=== PATIENT | female | born 1970 | race Caucasian/White ===

== ENCOUNTER 2016-11-07 22:40 | Inpatient (IN) | payer BC ==
[~2016-11-07] VITALS: Ht 165.1 cm; Wt 59.4 kg
[2016-11-07] MEDS ORDERED: SUMA50TA PO (22:49)
[2016-11-07] MEDS ORDERED: ONDANSETRON 4 MG/2 ML VIAL IV ONE (23:00)
[2016-11-07] MEDS ORDERED: IV NORMAL SALINE 1000 ML BAG IV ONE (23:00)
[2016-11-07] MEDS ORDERED: HYDROMORPHONE 1 MG/1 ML DISP.SYRIN IV ONE (23:00)
[2016-11-07] MEDS ORDERED: ONDANSETRON 4 MG/2 ML VIAL ONE (23:12)
[2016-11-07] MEDS ORDERED: HYDROMORPHONE 1 MG/1 ML DISP.SYRIN ONE ×2 (23:12→23:59)
[2016-11-07 23:29] LABS: ALBUMIN 4.6 g/dL (3.4-5.0); BILIRUBIN,DIRECT 0.1 mg/dL (0.0-0.2); BILIRUBIN,TOTAL 0.7 mg/dL (0.2-1.0); CALCIUM 9.6 mg/dL (8.5-10.1); CREATININE 0.9 mg/dL (0.6-1.3); POTASSIUM 3.8 mmol/L (3.5-5.1); TOTAL PROTEIN, SERUM 7.8 g/dL (6.4-8.2)
[2016-11-07 23:32] LABS: BASOPHILS % (AUTO) 0.1 % (0.0-2.0); HEMATOCRIT 42.3 % (37.0-47.0); HEMOGLOBIN 14.4 g/dL (12.0-16.0); LYMPHOCYTES # (AUTO) 0.6 K/uL (0.8-4.8); LYMPHOCYTES % (AUTO) 4.7 % (20.5-51.5); MEAN CORPUSCULAR HEMOGLOBIN 31.2 uug (27.0-31.0); MEAN CORPUSCULAR HGB CONC 34 g/dL (32.0-37.0); MEAN CORPUSCULAR VOLUME 91.7 fL (81.0-99.0); MONOCYTES % (AUTO) 8.7 % (0.0-11.0); NEUTROPHILS # (AUTO) 10.4 K/uL (1.8-8.9); NEUTROPHILS % (AUTO) 86.5 % (38.5-71.5); PLATELET COUNT (AUTO) 185 K/uL (150-450); RED BLOOD CELL COUNT(AUTO) 4.61 MIL/uL (4.20-5.40); RED CELL DISTRIBUTION WIDTH 11.5 % (11.5-14.5)
[2016-11-08] MEDS ORDERED: HYDROMORPHONE 1 MG/1 ML DISP.SYRIN IV ONE
[2016-11-08] MEDS ORDERED: ONDANSETRON 4 MG/2 ML VIAL ONE
[2016-11-08] MEDS ORDERED: ONDANSETRON IV *ER 4 MG/2 ML VIAL IV ONE
--- NOTE | 2016-11-08 01:16 | NUR ---
Patient is in bed, comfortable , no distress noted at this time. awaiting CT results. No nausea/vomiting at this time.
--- NOTE | 2016-11-08 01:39 | NUR ---
[facility] TO MD. CONSULT.
[2016-11-08] MEDS ORDERED: METRONIDAZOLE 500 MG/NS 100 ML PIGGYBACK IV ONE (01:45)
[2016-11-08] MEDS ORDERED: CEFTRIAXONE 1 G in IV DEXTROSE 5% 50 ML IV ONE (01:45)
[2016-11-08] MEDS ORDERED: IV NS 1000 ML 1,000 ML IV PRN (01:46)
[2016-11-08] MEDS ORDERED: CEFTRIAXONE 1 G VIAL ONE (01:56)
[2016-11-08] MEDS ORDERED: METRONIDAZOLE 500 MG/NS 100ML 100 ML IV ONE (01:57)
[2016-11-08] MEDS ORDERED: MAGNESIUM HYDROXIDE 30 ML LIQUID UDC PO PRN (02:00)
[2016-11-08] MEDS ORDERED: TEMAZEPAM 7.5 MG CAPSULE PO PRN (02:00)
[2016-11-08] MEDS ORDERED: Z GUARD REMEDY PASTE 57 GM TUBE TOP PRN (02:00)
[2016-11-08] MEDS ORDERED: ACETAMINOPHEN 325 MG TABLET PO PRN (02:00)
[2016-11-08] MEDS ORDERED: MORPHINE SULFATE 2 MG/1 ML DISP.SYRIN IV PRN ×2 (02:00→10:30)
[2016-11-08] MEDS ORDERED: ONDANSETRON 4 MG/2 ML VIAL IV PRN (02:00)
--- NOTE | 2016-11-08 02:12 | NUR ---
Pt. admitted to telemetry , under care of Dr. Maldonado. Dx: Appendicitis Belongs List completed
--- NOTE | 2016-11-08 02:15 | NUR ---
Patient arrived from ED awake, alert & oriented. Received report from YELITZA Wahl. Patient was admitted for appendicitis. Patient is able to verbalize needs. Patient reports no distress. Respirations are unlabored and V/S are WNL. PERRLA. Skin is Warn ,dry pink and intact. Patient ambulates with steady gate. Patient has pain on right side of her abdomen 10/10. Patient is NPO, and scheduled for an appendectomy this morning. Patient has a 22g & a 20g in her right AC. Patient is resting in bed comfortably with bed flat and in lowest position, with 2/4 siderails up for safety. Call light within reach. will continue to monitor.
[2016-11-08] MEDS ORDERED: PIPERACILLIN/TAZOBACTAM/D5W 50 ML IV ONE (04:12)
[2016-11-08] MEDS: PIPERACILLIN/TAZOBACTAM/D5W 3.375 G in PREMIXED 1 EACH IV SCH ×3 (05:07→22:10)
[2016-11-08 05:12] LABS: *BILIRUBIN,URIN NEGATIVE (NEGATIVE); *BLOOD, URINE 2+ (NEGATIVE); *CLARITY,URINE CLEAR (CLEAR); *COLOR,URINE YELLOW (YELLOW); *KETONES,URINE 4+ (NEGATIVE); *PROTEIN,URINE NEGATIVE (NEGATIVE); *UROBILINOGEN,URINE 0.2 E.U./dl (NORMAL); LEUKOCYTE ESTERASE ,URINE NEGATIVE (NEGATIVE); NITRITE, URINE NEGATIVE (NEGATIVE); PH,URINE 5.5 (5.0-8.0); UGLUCOSE NEGATIVE (NEGATIVE)
[2016-11-08 05:20] LABS: BACTERIA,URINE FEW /HPF (NONE SEEN); SQUAMOUS EPITHELIAL CELL,UR MODERATE /HPF (NONE SEEN); WBC,URINE 0-3 /HPF (0-3)
[2016-11-08] MEDS ORDERED: LIDOCAINE HCL 1% 20 ML VIAL ONE (05:44)
[2016-11-08] MEDS ORDERED: BUPIVACAINE/EPI PF 0.25% 30 ML VIAL ONE (05:44)
[2016-11-08 07:08] LABS: BASOPHILS % (AUTO) 0.3 % (0.0-2.0); HEMATOCRIT 38.5 % (37.0-47.0); LYMPHOCYTES # (AUTO) 0.7 K/uL (0.8-4.8); MEAN CORPUSCULAR HEMOGLOBIN 30.8 uug (27.0-31.0); MEAN CORPUSCULAR HGB CONC 34 g/dL (32.0-37.0); MONOCYTES % (AUTO) 8.8 % (0.0-11.0); NEUTROPHILS # (AUTO) 9.2 K/uL (1.8-8.9); NEUTROPHILS % (AUTO) 84.9 % (38.5-71.5); PLATELET COUNT (AUTO) 185 K/uL (150-450); RED BLOOD CELL COUNT(AUTO) 4.23 MIL/uL (4.20-5.40); RED CELL DISTRIBUTION WIDTH 11.4 % (11.5-14.5); WHITE BLOOD COUNT (AUTO) 10.9 K/uL (4.0-11.2)
[2016-11-08 07:25] LABS: ALBUMIN 3.9 g/dL (3.4-5.0); BILIRUBIN,TOTAL 0.7 mg/dL (0.2-1.0); CALCIUM 8.5 mg/dL (8.5-10.1); CREATININE 0.8 mg/dL (0.6-1.3); MAGNESIUM 1.7 mg/dL (1.8-2.4); PHOSPHOROUS 2.8 mg/dL (2.5-4.9); POTASSIUM 3.7 mmol/L (3.5-5.1)
[2016-11-08] MEDS: PANTOPRAZOLE SODIUM 40 MG VIAL IV SCH (07:25)
[2016-11-08] MEDS ORDERED: DESFLURANE ANESTHESIA GAS 240 ML BOTTLE IH ONE (07:43)
[2016-11-08] MEDS ORDERED: PROPOFOL 200 MG/20 ML BOTTLE IV ONE (07:43)
[2016-11-08] MEDS ORDERED: ESMOLOL HCL 100 MG/10 ML VIAL IV ONE (07:44)
[2016-11-08] MEDS ORDERED: NEOSTIGMINE METHYLSULFATE 10 MG/10 ML VIAL IV ONE (07:44)
[2016-11-08] MEDS ORDERED: GLYCOPYRROLATE 0.2 MG/ML VIAL MC ONE (07:44)
[2016-11-08] MEDS ORDERED: KETOROLAC TROMETHAMINE 30 MG INJ IM ONE (07:45)
[2016-11-08] MEDS ORDERED: DEXAMETHASONE SOD PHOSPHATE 4 MG INJ IV ONE (07:45)
[2016-11-08] MEDS ORDERED: ONDANSETRON 4 MG/2 ML VIAL IV ONE (07:46)
[2016-11-08] MEDS ORDERED: IV NORMAL SALINE 1000 ML BAG IV ONE (07:46)
--- NOTE | 2016-11-08 09:11 | NUR ---
NURSING NOTE A/O IN NO ACUTE DISTRESS. RETURNED FORM SX 0900. ABD SOFT SKIN INTACT TWO LAP SCARS WITH DERMABOND. INTACT CLEAN NO BLEEDING OR SWELLING NOTED. NO C/O PAIN 08/20. NO REQUEST FOR PAIN MED AT THIS TIME. UP OOB TO AMBUATE TO BR. HOWIE WELL
[2016-11-08 09:15] VITALS: BP 106/70
[2016-11-08] MEDS: HYDROCODONE/APAP 5-325MG TABLET PO PRN ×2 (10:17→14:54)
[2016-11-08] MEDS ORDERED: IV LACTATED RINGERS SOLUTION 1,000 ML IV PRN (11:15)
[2016-11-08 11:30] VITALS: BP 107/70
[2016-11-08 16:11] VITALS: BP 100/68
[2016-11-08] MEDS: MAGNESIUM SULFATE/D5W 100 ML IV SCH ×3 (17:28→20:23)
[2016-11-08] MEDS: MORPHINE SULFATE 4 MG/1 ML DISP.SYRIN IV PRN ×2 (17:47→21:05)
--- NOTE | 2016-11-08 19:30 | NUR ---
nsg: pt received awake, alert, in bed. denies discomfort. lungs sound clear to auscultate. tele, SR. bowel sounds hypoactive. has 2 abd incisions. pt is encouraged to ambulate. per pt, tolerated po well, denies n/v. refused dvt pumps. cont to monitor.
--- NOTE | 2016-11-08 20:10 | NUR ---
nsg: pt ambulating around the unit. denies discomfort.
--- NOTE | 2016-11-08 20:23 | NUR ---
NSG: spoke with am RN, only administered 1 gram of mag. order is total of 2 grams mag iv. administered 2nd dose of mag.
[2016-11-08 21:48] VITALS: BP 101/65
[2016-11-08 23:13] VITALS: BP 100/67
[2016-11-09] MEDS: MORPHINE SULFATE 4 MG/1 ML DISP.SYRIN IV PRN (01:56)
[2016-11-09] MEDS: PANTOPRAZOLE SODIUM 40 MG VIAL IV SCH (05:36)
[2016-11-09] MEDS: HYDROCODONE/APAP 5-325MG TABLET PO PRN ×2 (05:37→10:12)
[2016-11-09] MEDS: PIPERACILLIN/TAZOBACTAM/D5W 3.375 G in PREMIXED 1 EACH IV SCH (05:37)
[2016-11-09 05:45] VITALS: BP 97/61
--- NOTE | 2016-11-09 06:17 | NUR ---
nsg: pt awake, alert, ambulated 2 laps around the unit. passed gas x 1, but bowel sounds still hypoactive. denies n/v. c/o abd soreness, pain meds given. tele, SR. cont to monitor.
--- NOTE | 2016-11-09 07:05 | NUR ---
PATIENT RECEIVED IN ROOM RESTING ALERT AWAKE IN NO ACUTE DISTRESS. DENIED PAIN. SR ON TELEMETRY. RESPIRATIONS EVEN AND UNLABORED. IVF RUNNING. IV SITE INTACT AND PATENT. CALL LIGHT AT REACH.
[2016-11-09 07:24] LABS: BASOPHILS % (AUTO) 0.2 % (0.0-2.0); EOSINOPHILS % (AUTO) 0.6 % (0.0-7.0); HEMOGLOBIN 11.4 g/dL (12.0-16.0); LYMPHOCYTES % (AUTO) 16.6 % (20.5-51.5); MEAN CORPUSCULAR HEMOGLOBIN 31.8 uug (27.0-31.0); MEAN CORPUSCULAR HGB CONC 34 g/dL (32.0-37.0); MEAN CORPUSCULAR VOLUME 93.1 fL (81.0-99.0); MONOCYTES # (AUTO) 0.5 K/uL (0.1-1.30); MONOCYTES % (AUTO) 9.2 % (0.0-11.0); NEUTROPHILS # (AUTO) 4.3 K/uL (1.8-8.9); NEUTROPHILS % (AUTO) 73.4 % (38.5-71.5); PLATELET COUNT (AUTO) 153 K/uL (150-450); RED CELL DISTRIBUTION WIDTH 11.7 % (11.5-14.5)
[2016-11-09 07:25] LABS: ALBUMIN 3.1 g/dL (3.4-5.0); BILIRUBIN,TOTAL 0.4 mg/dL (0.2-1.0); CALCIUM 8.2 mg/dL (8.5-10.1); CREATININE 0.7 mg/dL (0.6-1.3); MAGNESIUM 2.2 mg/dL (1.8-2.4); PHOSPHOROUS 2.4 mg/dL (2.5-4.9); POTASSIUM 3.4 mmol/L (3.5-5.1)
[2016-11-09 07:44] LABS: RED BLOOD CELL COUNT(AUTO) 3.58 MIL/uL (4.20-5.40); WHITE BLOOD COUNT (AUTO) 5.8 K/uL (4.0-11.2)
[2016-11-09 07:45] LABS: HEMATOCRIT 33.3 % (37.0-47.0)
[2016-11-09] MEDS ORDERED: SUMATRIPTAN SUCCINATE 50 MG TABLET PO ONE (08:45)
--- NOTE | 2016-11-09 08:57 | NUR ---
PATIENT WITH BSX4. AMBULATED X4 AROUND THE UNIT. TOLERATED WITHOUT C.O PAIN.
[2016-11-09] MEDS ORDERED: NEUTRA PHOS PACKET PO ONE (09:30)
[2016-11-09] MEDS ORDERED: POTASSIUM CHLORIDE 20 MEQ TAB.PRT.SR PO ONE (09:30)
[2016-11-09] MEDS ORDERED: HYDR-3326 PO (11:24)
[2016-11-09] MEDS ORDERED: CEPH-570 PO (11:24)
[2016-11-09 11:48] VITALS: BP 95/63
--- NOTE | 2016-11-09 12:00 | NUR ---
Discharge Plan: The patient's discharge [facility] is [facility] [facility] [id number] ] once medically cleared.
--- NOTE | 2016-11-09 13:03 | NUR ---
DISCHARGING PATIENT HOME IN A STABLE CONDITION. VSS. PAIN MANAGED WITH MEDICATION PRESCRIBED. DISCHARGE INSTRUCTIONS PROVIDED. LIST OF BELONGINGS SINGED AND ALL WAS TAKEN. IV REMOVED, PRESSURE APPLIED AND HEMOSTASIS ACHIEVED. PATIENT LEAVING VIA PRIVATE CAR ACCOMPANIED BY .
[2016-11-10] MEDS ORDERED: PANTOPRAZOLE SODIUM 40 MG TABLET.DR PO SCH (07:00)
== END 2016-11-09 13:00 | disposition home or self-care (01) | DRG 342 ==
LOC: ER 22:47 → TELE 11-08 01:50 → MED 11-09 08:45
PROVIDERS: ADMIT Family Medicine; ATTEND Internal Medicine
PROC: 0DTJ4ZZ Resection of Appendix, Percutaneous Endoscopic Approach (ICD-10-PCS; principal; 2016-11-08 06:30)
DX: K35.80 Unspecified acute appendicitis (principal); E87.2 Acidosis; G43.909 Migraine, unspecified, not intractable, without status migrainosus; E83.42 Hypomagnesemia; D72.829 Elevated white blood cell count, unspecified; E87.8 Other disorders of electrolyte and fluid balance, not elsewhere classified
CPT/HCPCS: 36415; 71010; 83690; 83735; 84100; 84703; 85025; 93005; A4663; C9113; J0696; J1100; J1170; J1885; J2270; J2405; J2543; J2710; J3475; J3490; J7030; J7050; J7120